=== PATIENT | female | born 1970 | race Caucasian/White ===

== ENCOUNTER 2019-08-05 10:46 | Outpatient (CLI) | payer BC ==
--- NOTE | 2019-08-05 16:25 | MRI ---
LEFT KNEE MRI WITHOUT IV CONTRAST: History: Left knee pain for several weeks. FINDINGS: Multiplanar, multisequence MR examination of the left knee is performed. Joint effusion with some dis tention of the suprapatellar recess. Focal irregular cartilage loss of the medial patellar facet cart ilage with some subchondral cystic and subchondral marrow signal changes. There are also prominent ca rtilage loss changes of the medial compartment, particularly the medial femoral condyle with some adj acent marrow signal, possibly reaction or possibly subtle insufficiency type fracture. Irregular root tear of the posterior root of the medial meniscus with intrasubstance degenerative signal throughout . The lateral meniscus appears unremarkable. Anterior and posterior cruciate ligaments, collateral li gament complexes, and quadriceps and patellar tendons appear intact. IMPRESSION: Posterior root tear of medial meniscus. Cartilage loss of the medial patellar facet and medial compar tment with some subchondral cystic changes and possible associated subtle insufficiency type fracture of the medial femoral condyle. Evidence for joint effusion. POS: JIMMIE
== END 2019-08-05 10:47 | disposition home or self-care (01) ==
LOC: SCSMRI 10:46
PROVIDERS: ATTEND Orthopaedic Surgery
DX: M25.562 Pain in left knee (principal); M25.462 Effusion, left knee; S83.242A Other tear of medial meniscus, current injury, left knee, initial encounter

== ENCOUNTER 2019-11-28 05:48 | Outpatient (CLI) | payer BC ==
[2019-11-28 13:44] LABS: #Basophils 0.1 thou/uL (0.0-0.2); #Eosinphils 0.1 thou/uL (0.0-0.7); #Lymphocytes 3.4 thou/uL (1.20-3.40); #Monocytes 0.8 thou/uL (0.11-0.59); #Neutrophils 5.9 thou/uL (1.40-6.50); %Basophils 0.6 % (0.0-1.0); %Eosinophils 0.8 % (0.0-10.0); %Lymphocytes 33.4 % (21.0-51.0); %Monocytes 8.2 % (0.0-10.0); Mean Corpuscular HGB CONC 31.8 g/dL (32.0-36.0); Mean Corpuscular Hemoglobin 29.9 pg (27.0-31.0); Mean Platelet Volume 7.7 fL (7.4-10.4); Platelet Count 372 thou/uL (130-400); RBC Distribution Width 11.2 % (11.5-14.5); Red Blood Cell (RBC) Count 4.68 mill/uL (4.20-5.40); White Blood Cell (WBC) Count 10.3 thou/uL (4.8-10.8)
[2019-11-28 13:52] LABS: Prothrombin Time 13.4 SEC (12.0-14.7)
[2019-11-28 13:53] LABS: Bilirubin Negative (Negative); Glucose, Urine (Dipstick) Negative (Negative); Leukocyte Large (Negative); Nitrite Negative (Negative); Protein, Urine (Dipstick) 30 mg/dL (Neg-Trace); Urobilinogen 0.2 mg/dL (Less than 2)
[2019-11-28 13:56] LABS: Clarity Cloudy (Clear)
[2019-11-28 14:02] LABS: Bacteria/HPF 4+ HPF (None Seen); Mucous/LPF 1+ LPF (<2+); RBC/HPF 21-50 HPF (0-3); Renal Epithelial 0-3 HPF (None Seen); Squamous Epithelial Greater than 50 HPF (0-3); Transitional Epithelial 0-3 HPF (None Seen); WBC/HPF Greater than 50 HPF (0-3)
[2019-11-28 14:05] LABS: Anion Gap 12 mmol/L (10-20); BUN (Urea Nitrogen) 8 mg/dL (7.0-18.7); Calc. Creatinine Clearance 0 mL/min (70-130); Calcium 9.2 mg/dL (7.8-10.44); Carbon Dioxide 22 mmol/L (22-29); Chloride 107 mmol/L (98-107); Estimated GFR-MDRD 79; Glucose 107 mg/dL (70-105); Potassium 4.1 mmol/L (3.5-5.1); Sodium 137 mmol/L (136-145)
[2019-11-28 14:05] LABS: Blood, Urine 1+ (Negative)
== END 2019-11-28 05:49 | disposition home or self-care (01) ==
LOC: LABBT 05:48
PROVIDERS: ATTEND Orthopaedic Surgery
DX: Z01.818 Encounter for other preprocedural examination (principal); M17.12 Unilateral primary osteoarthritis, left knee
CPT/HCPCS: 80048; 81001; 85025; 85610; 87081; 93005; 93010

== ENCOUNTER 2019-11-28 13:00 | Inpatient (IN) | payer BC ==
[2019-11-28 12:26] VITALS: BMI 32.8
[2019-12-09] MEDS ORDERED: Vancomycin 1.5 GRAM/300 ML BAG 1.5 GM/300 ML BAG ONE (05:54)
[2019-12-09] MEDS ORDERED: Clindamycin/D5W 600 mg/50 ml Premix Bag ONE (05:54)
[2019-12-09] MEDS ORDERED: Tranexamic Acid 1,000 MG/10 ML VIAL ONE (05:54)
[2019-12-09] MEDS ORDERED: Sodium Chloride 0.9% 0 ML ONE (05:54)
[2019-12-09] MEDS ORDERED: Lidocaine 2% Jelly 5 ML TUBE ONE (05:59)
[2019-12-09] MEDS ORDERED: Fentanyl 100 MCG/2 ML VIAL ONE ×4 (05:59→10:29)
[2019-12-09] MEDS ORDERED: Sodium Chloride 0.9% 100 ML ONE (06:04)
[2019-12-09 06:19] LABS: Bilirubin Negative (Negative); Blood, Urine Negative (Negative); Clarity Clear (Clear); Glucose, Urine (Dipstick) Normal (Negative); Leukocyte 250 Leu/uL (Negative); Nitrite Negative (Negative); Protein, Urine (Dipstick) Negative (Neg-Trace); RBC/HPF 0-3 HPF (0-3); Urobilinogen Normal mg/dL (Less than 2)
[2019-12-09] MEDS ORDERED: Ondansetron PF 4 MG/2 ML Vial ONE ×2 (06:25→09:51)
[2019-12-09] MEDS ORDERED: Midazolam HCl 2 mg/2 ml Vial ONE (06:26)
[2019-12-09] MEDS ORDERED: Lidocaine 1% (PF) 30 ML VIAL ONE (06:26)
[2019-12-09] MEDS ORDERED: Bupivacaine PF 0.5% 30 ML VIAL ONE (06:31)
[2019-12-09 06:38] LABS: Bacteria/HPF Rare-Few HPF (None Seen)
[2019-12-09 06:39] LABS: Sperm/HPF 1+ HPF (None Seen)
[2019-12-09] MEDS ORDERED: Ropivacaine HCl/PF 250 ML in Premix Bag 1 BAG NERVE BLCK SCH (07:26)
[2019-12-09] MEDS ORDERED: Ondansetron PF 4 MG/2 ML Vial IVP PRN ×2 (07:26→11:59)
[2019-12-09] MEDS ORDERED: traMADol HCl 50 MG TAB PO PRN ×2 (07:26)
[2019-12-09] MEDS ORDERED: Zolpidem Tartrate 5 MG TAB PO PRN ×2 (07:26→11:59)
[2019-12-09] MEDS ORDERED: Acetaminophen 325 MG TAB PO PRN ×2 (07:26→11:59)
[2019-12-09] MEDS ORDERED: Promethazine HCl 25 MG/ML VIAL IM PRN ×3 (07:26→11:59)
[2019-12-09] MEDS ORDERED: HYDROcodone/Acetaminophen 10/325 mg Tablet PO PRN ×2 (07:26)
[2019-12-09] MEDS ORDERED: Fentanyl 100 MCG/2 ML VIAL SLOW IVP PRN (07:27)
[2019-12-09] MEDS ORDERED: Ketorolac Tromethamine 30 MG/ML VIAL IVP PRN (08:29)
[2019-12-09] MEDS ORDERED: Ondansetron HCl/PF 4 MG/2 ML Vial IVP PRN (08:29)
[2019-12-09] MEDS ORDERED: Promethazine HCl 25 MG/ML VIAL SLOW IVP PRN (08:29)
[2019-12-09] MEDS ORDERED: HYDROmorphone 2 MG/ML VIAL SLOW IVP PRN (08:29)
[2019-12-09] MEDS ORDERED: Meperidine HCl/PF 25 MG/ML VIAL SLOW IVP PRN ×2 (08:29)
[2019-12-09 09:00] LABS: Bacteria/HPF None Seen HPF (None Seen); Bilirubin Negative (Negative); Blood, Urine Negative (Negative); Clarity Clear (Clear); Glucose, Urine (Dipstick) Normal (Negative); Leukocyte Negative Leu/uL (Negative); Nitrite Negative (Negative); Protein, Urine (Dipstick) 20 mg/dL (Neg-Trace); RBC/HPF None Seen HPF (0-3); Squamous Epithelial None Seen HPF (0-3); Urobilinogen Normal mg/dL (Less than 2); WBC/HPF 0-3 HPF (0-3)
--- NOTE | 2019-12-09 09:30 | OP ---
DATE OF PROCEDURE: 12/09/2019 PREOPERATIVE DIAGNOSIS: Left knee osteoarthrosis. POSTOPERATIVE DIAGNOSIS: Left knee osteoarthrosis. PROCEDURE PERFORMED: Left total knee replacement using ABODO pinless navigation. CARD CUTTER: Reji hKan PA-C ESTIMATED BLOOD LOSS: Minimal. COMPLICATIONS: None. ANESTHESIA: The patient did have a general anesthetic as well as preoperative block. IMPLANTS: Triathlon total knee system. The femur was a size 3 cruciate retaining left femur. We used a size 2 primary tibial base plate. We used a size 2 x 9 mm CS X3 tibial bearing and a symmetric 27 x 8 X3 patella. DISPOSITION: The patient did go to recovery room in stable condition. INDICATIONS FOR PROCEDURE: This is a 49-year-old female, who failed nonoperative treatment for medial gonarthrosis and at this time wished to have the knee replaced. PROCEDURE IN DETAIL: After all appropriate consent forms were explained and signed, the patient was taken back to the operating room and at this time was given general anesthetic. Once the level of anesthesia was appropriate, a well-padded tourniquet was placed on the left leg, and the leg was then prepped and draped in standard surgical fashion. The limb was exsanguinated and tourniquet taken up to 300 mmHg. Midline incision was made with a 10 blade down through the skin and subcutaneous tissue. Bovie electrocautery was used to coagulate any brisk venous bleeding. A new blade was used to make a medial parapatellar arthrotomy. Small subperiosteal release was performed medially and excess fat pad was removed. The knee was flexed up to gain access to the femur. The femur was navigated and distal femoral resection was made. Epicondylar access was used to align our sizing jig and this was pinned in place. We sized our femur to be a size 3. 4:1 cutting block was applied and pinned. Anterior and posterior chamfer cuts were then made. We navigated out our proximal tibia and made our proximal tibial resection. Spreaders were used to remove any posterior osteophytes off the back of the femur as well as remaining meniscal tissue. A long alignment doc was then used to achieve correct rotation of our tibial baseplate and a size 2 primary tibial base plate was chosen. This was pinned in place. We trialed the polyethylene and a 2 x 9 mm CS X3 tibial bearing polyethylene gave us full extension and good stability throughout range of motion. Two towel clips and a saw were used to cut our patella. Three lug nuts were drilled and a symmetric 27 x 8 X3 patella was trialed which sat nicely in the trochlear groove. We then drilled our femur and punched our tibia. All components were removed. The knee was thoroughly irrigated and dried. Cement was mixed into the cement gun on the back table. Components were then placed. The knee was held out in full extension until the cement had dried. All excess bone cement was removed. Multiple #2 Vicryl stitches as well as a Quill were used to close our extensor mechanism. 0 Quill followed by a running Monoderm was then used to close the skin. Surgicel glue was then used on the skin. Once this had dried, soft tissue dressing was applied to the limb, tourniquet was let down, and the toes pinked up nicely. The patient was then awakened and taken to the recovery room in stable condition. All counts were correct at the end of the case. The patient did receive preoperative IV antibiotics. Job ID: [id number]
[2019-12-09] MEDS ORDERED: Ropivacaine 0.5% HCl/PF (150 MG/30 ML VIAL) ONE (09:51)
[2019-12-09] MEDS ORDERED: Ropivacaine 0.2% HCl/PF (40 MG/20 ML VIAL) ONE (09:51)
[2019-12-09] MEDS ORDERED: Dexamethasone 20 MG/5 ML VIAL ONE (09:51)
[2019-12-09] MEDS ORDERED: PROPOFOL 200 MG/20 ML VIAL ONE (09:51)
[2019-12-09] MEDS ORDERED: Promethazine HCl 25 MG/ML VIAL ONE (10:00)
[2019-12-09] MEDS ORDERED: Ketorolac Tromethamine 30 MG/ML VIAL ONE (10:35)
[2019-12-09] MEDS ORDERED: diphenhydrAMINE 25 MG CAP PO PRN (11:59)
[2019-12-09] MEDS ORDERED: FLU VACC QS2019-20(6MOS UP)/PF 60 MCG/0.5 ML SYRINGE IM ONE (13:00)
[2019-12-09] MEDS: HYDROcodone/Acetaminophen 10/325 mg Tablet PO PRN ×2 (13:24→21:31)
[2019-12-09 13:49] LABS: Bacteria/HPF None Seen HPF (None Seen); Bilirubin Negative (Negative); Blood, Urine Trace (Negative); Clarity Clear (Clear); Glucose, Urine (Dipstick) Normal (Negative); Leukocyte Negative Leu/uL (Negative); Nitrite Negative (Negative); Protein, Urine (Dipstick) Negative (Neg-Trace); RBC/HPF 0-3 HPF (0-3); Squamous Epithelial None Seen HPF (0-3); Urobilinogen Normal mg/dL (Less than 2)
[2019-12-09] MEDS ORDERED: CEFAZOLIN 2 GM in Premix Bag 1 BAG IVPB SCH (14:00)
[2019-12-09] MEDS: Ketorolac Tromethamine 30 MG/ML VIAL IVP SCH ×3 (14:29→23:53)
[2019-12-09] MEDS: Clindamycin/D5W 600 MG in Premix Bag 1 BAG IVPB SCH ×2 (14:34→21:30)
[2019-12-09] MEDS ORDERED: Vancomycin HCl 1 GM in Premix Bag 1 BAG IVPB SCH (18:00)
--- NOTE | 2019-12-09 18:08 | PDOC.HOSPP ---
- Subjective Encounter Date: 12/09/19 Encounter Time: 18:00 Subjective: Consulted for gen medical mgmt s/p L TKA. Hx of HTN, GERD, Osteoarthritis and seasonal allergy. No specific pain currently. No SOB or CP. - Objective Vital Signs & Weight: Vital Signs (12 hours) Temp Pulse Pulse Resp BP BP Pulse Ox 12/09/19 13:24 80 108/73 12/09/19 11:10 98.5 F 76 24 H 115/76 99 Weight Weight 185 lb I&O: 12/08/19 12/09/19 12/10/19 06:59 06:59 06:59 Output Total 1000 Balance -1000 Additional Labs: Laboratory Tests 11/28/19 11/28/19 12:34 12:38 WBC 10.3 Hgb 14.0 Hct 44.1 Plt Count 372 Sodium 137 Potassium 4.1 Chloride 107 Carbon Dioxide 22 Anion Gap 12 BUN 8 Creatinine 0.78 Glucose 107 H Calcium 9.2 EKG Reviewed by me: Yes (SR in 60's, NL axis, no acute changes) Hospitalist ROS - Medication Medications: Active Medications Generic Name Dose Route Start Last Admin Trade Name Freq PRN Reason Stop Dose Admin Hydrocodone Bitart/Acetaminophen 1 tab 12/09/19 11:59 12/09/19 13:24 [place] 10/325 PO 1 tab Q4H PRN Administration Moderate Pain (4-6) Vancomycin HCl 1 gm/ Device 200 mls @ 200 mls/hr 12/09/19 18:00 12/09/19 17: 38 IVPB 12/09/19 18:59 200 mls 1800 WANDA Administration Clindamycin Phosphate/Dextrose 50 mls @ 100 mls/hr 12/09/19 14:00 12/09/19 14 :34 600 mg/ Device IVPB 12/09/19 22:29 50 mls 1400,2200 WANDA Administration Ketorolac Tromethamine 30 mg 12/09/19 12:00 12/09/19 17:38 Toradol IVP 12/11/19 06:01 30 mg Q6HR WANDA Administration Sodium Chloride 10 ml 12/09/19 09:00 12/09/19 14:29 Flush - Normal Saline IVF Not Given Q12HR WANDA - Exam General Appearance: NAD, awake alert Eye: PERRL, anicteric sclera ENT: normocephalic atraumatic, no oropharyngeal lesions Neck: supple, symmetric, no JVD, no thyromegaly Heart: RRR, no murmur, no gallops, no rubs, normal peripheral pulses Respiratory: CTAB, no wheezes, no rales, no ronchi, normal chest expansion Gastrointestinal: soft, non-tender, non-distended, normal bowel sounds Extremities: no cyanosis Extremities - other findings: LLE with surgical wrap in place Skin: normal turgor Neurological: cranial nerve grossly intact Psychiatric: normal affect, A&O x 3 Hosp A/P (1) HTN (hypertension) Code(s): I10 - ESSENTIAL (PRIMARY) HYPERTENSION Status: Chronic Qualifiers: Hypertension type: essential hypertension Qualified Code(s): I10 - Essential (primary) hypertension Plan: Resume Metoprolol and hold Lisinopril until 12/10/19, serial BP monitoring (2) GERD (gastroesophageal reflux disease) Code(s): K21.9 - GASTRO-ESOPHAGEAL REFLUX DISEASE WITHOUT ESOPHAGITIS Status: Chronic Plan: Continue PPI (3) Osteoarthritis Code(s): M19.90 - UNSPECIFIED OSTEOARTHRITIS, UNSPECIFIED SITE Status: Chronic Plan: Pain control, PT/OT (4) Status post total knee replacement, left Code(s): Z96.652 - PRESENCE OF LEFT ARTIFICIAL KNEE JOINT Status: Acute Plan: ASA 81mg BID, DVT ppx, OOB with PT - Plan PT/OT, social science manager, incentive spirometry, DVT proph w/SCDs Stable overall Continue ASA 81mg BID Pain control Continue Joint U protocol Incentive spirometer AM lab: CBC
[2019-12-09] MEDS: Senokot S 8.6-50 MG TAB PO SCH (21:18)
[2019-12-09] MEDS: Ferrous Gluconate 324 MG TAB PO SCH (21:18)
[2019-12-09] MEDS: Aspirin 81 mg Enteric Coated Tablet PO SCH (21:30)
[2019-12-10 05:07] LABS: Hemoglobin 12.1 g/dL (12.0-16.0); Mean Corpuscular HGB CONC 33.9 g/dL (32.0-36.0); Mean Corpuscular Hemoglobin 32.1 pg (27.0-31.0); Mean Corpuscular Volume 94.7 fL (78.0-98.0); Mean Platelet Volume 7.7 fL (7.4-10.4); Platelet Count 287 thou/uL (130-400); RBC Distribution Width 11.1 % (11.5-14.5); Red Blood Cell (RBC) Count 3.76 mill/uL (4.20-5.40); White Blood Cell (WBC) Count 14.2 thou/uL (4.8-10.8)
[2019-12-10] MEDS: HYDROcodone/Acetaminophen 10/325 mg Tablet PO PRN ×5 (05:23→22:38)
[2019-12-10] MEDS: Ketorolac Tromethamine 30 MG/ML VIAL IVP SCH ×3 (06:39→17:10)
[2019-12-10] MEDS: Ferrous Gluconate 324 MG TAB PO SCH ×3 (09:02→21:10)
[2019-12-10] MEDS: Aspirin 81 mg Enteric Coated Tablet PO SCH ×2 (09:02→21:10)
[2019-12-10] MEDS: Senokot S 8.6-50 MG TAB PO SCH ×2 (09:04→21:09)
[2019-12-10] MEDS: Lisinopril 20 MG TAB PO SCH ×2 (09:05→21:09)
[2019-12-10] MEDS: Multivitamin W/ Minerals 1 TAB PO SCH (09:05)
--- NOTE | 2019-12-10 14:59 | PRG ---
DATE OF SERVICE: 12/10/2019 SUBJECTIVE: Marlyn is a 49-year-old female postop day 1 from left total knee arthroplasty for avascular necrosis of the left knee. Subjectively, she is doing relatively well. She has no complaints of pain. She is comfortable at this point. She ambulated 280 feet today. OBJECTIVE: VITAL SIGNS: Temperature , pulse 83, respiratory rate 16, and blood pressure 134/77. GENERAL: She is alert and oriented to person, place, time, and situation. Responds appropriately with examiner, in no pain and grossly nonfocal. EXTREMITIES: She is neurovascularly intact in the left lower extremity, and she has no strike through at the incision. No erythema. LABORATORY DATA: Hemoglobin and hematocrit 12.1 and 35.6. IMPRESSION: A 49-year-old female postoperative day 1, left total knee arthroplasty, doing well. PLAN: Continue current care. Probable discharge to home tomorrow. Job ID: [id number]
--- NOTE | 2019-12-10 18:01 | PDOC.HOSPP ---
- Subjective Encounter Date: 12/10/19 Encounter Time: 17:50 Subjective: f/u s/p L TKA POD #1. Feels ok overall and pain controlled with current regimen. Ambulated today with RW and overall feels well. No CP, SOB. - Objective Vital Signs & Weight: Vital Signs (12 hours) Temp Pulse Resp BP Pulse Ox 12/10/19 16:25 98.6 F 85 16 114/67 98 12/10/19 08:55 96 12/10/19 07:25 98.7 F 83 16 134/77 96 Weight Admit Weight 185 lb Weight 185 lb I&O: 12/09/19 12/10/19 12/11/19 06:59 06:59 06:59 Intake Total 1050 Output Total 1000 725 Balance -1000 325 Result Diagrams: 12/10/19 04:55 Additional Labs: Laboratory Tests 11/28/19 11/28/19 12:34 12:38 WBC 10.3 Hgb 14.0 Hct 44.1 Plt Count 372 Sodium 137 Potassium 4.1 Chloride 107 Carbon Dioxide 22 Anion Gap 12 BUN 8 Creatinine 0.78 Glucose 107 H Calcium 9.2 Hospitalist ROS - Medication Medications: Active Medications Generic Name Dose Route Start Last Admin Trade Name Freq PRN Reason Stop Dose Admin Hydrocodone Bitart/Acetaminophen 1 tab 12/09/19 11:59 12/10/19 05:23 [place] 10/325 PO 1 tab Q4H PRN Administration Moderate Pain (4-6) Hydrocodone Bitart/Acetaminophen 2 tab 12/09/19 11:59 12/10/19 13:24 [place] 10/325 PO 2 tab Q4H PRN Administration Severe Pain (7-10) Aspirin 81 mg 12/09/19 21:00 12/10/19 09:02 Ecotrin PO 81 mg BID WANDA Administration Fentanyl 50 mcg 12/09/19 07:27 12/10/19 06:45 Sublimaze SLOW IVP 50 mcg Q1H PRN Administration breakthrough pain Ferrous Gluconate 324 mg 12/09/19 21:00 12/10/19 09:04 Fergon PO Not Given BID WANDA Ropivacaine 250 ml/ Device 250 mls @ 10 mls/hr 12/09/19 07:26 12/10/19 09:07 NERVE BLCK 12/12/19 07:25 250 mls INF WANDA Administration Iron/Minerals/Multivitamins 1 tab 12/10/19 09:00 12/10/19 09:05 Theragran M PO 1 tab DAILY WANDA Administration Ketorolac Tromethamine 30 mg 12/09/19 12:00 12/10/19 17:10 Toradol IVP 12/11/19 06:01 30 mg Q6HR WANDA Administration Lisinopril 20 mg 12/09/19 21:00 12/10/19 09:05 Zestril PO Not Given BID [facility] Metoprolol Succinate 25 mg 12/10/19 09:00 12/10/19 09:03 Toprol Xl PO 25 mg QAM WANDA Administration Ondansetron HCl 4 mg 12/09/19 11:59 12/10/19 05:24 Zofran IVP 4 mg Q6H PRN Administration Nausea/Vomiting Promethazine HCl 12.5 mg 12/09/19 11:59 12/10/19 09:02 Phenergan IM 12.5 mg Q4H PRN Administration Nausea/Vomiting Senna/Docusate Sodium 2 tab 12/09/19 21:00 12/10/19 09:04 Senokot S PO 2 tab BID WANDA Administration Sodium Chloride 10 ml 12/09/19 09:00 12/10/19 11:54 Flush - Normal Saline IVF 10 ml Q12HR WANDA Administration - Exam General Appearance: NAD, awake alert Eye: PERRL, anicteric sclera ENT: normocephalic atraumatic, no oropharyngeal lesions Neck: supple, symmetric, no JVD, no thyromegaly Heart: RRR, no murmur, no gallops, no rubs, normal peripheral pulses Respiratory: CTAB, no wheezes, no rales, no ronchi, normal chest expansion Gastrointestinal: soft, non-tender, non-distended, normal bowel sounds Extremities: no cyanosis Extremities - other findings: L knee with surgical dressing in place Skin: normal turgor Neurological: cranial nerve grossly intact, no new deficit Musculoskeletal: normal tone, normal strength Psychiatric: normal affect, A&O x 3 Hosp A/P (1) HTN (hypertension) Code(s): I10 - ESSENTIAL (PRIMARY) HYPERTENSION Status: Chronic Qualifiers: Hypertension type: essential hypertension Qualified Code(s): I10 - Essential (primary) hypertension Plan: stable, continue Lisinopril/Metoprolol (2) GERD (gastroesophageal reflux disease) Code(s): K21.9 - GASTRO-ESOPHAGEAL REFLUX DISEASE WITHOUT ESOPHAGITIS Status: Chronic (3) Osteoarthritis Code(s): M19.90 - UNSPECIFIED OSTEOARTHRITIS, UNSPECIFIED SITE Status: Chronic (4) Status post total knee replacement, left Code(s): Z96.652 - PRESENCE OF LEFT ARTIFICIAL KNEE JOINT Status: Acute Plan: POD #1, pain control, ASA 81mg BID, PT/OT for mobilization - Plan PT/OT, socially responsible investment adviser, incentive spirometry, out of bed/ambulate, DVT proph w/ SCDs Stable overall Continue ASA 81mg BID Pain control Continue Joint U protocol Incentive spirometer Likely home in am
[2019-12-11] MEDS: Ketorolac Tromethamine 30 MG/ML VIAL IVP SCH ×2 (00:25→05:42)
[2019-12-11] MEDS: HYDROcodone/Acetaminophen 10/325 mg Tablet PO PRN ×3 (03:23→12:15)
[2019-12-11 05:33] LABS: Hemoglobin 11.3 g/dL (12.0-16.0); Mean Corpuscular HGB CONC 32.3 g/dL (32.0-36.0); Mean Corpuscular Hemoglobin 30.6 pg (27.0-31.0); Mean Corpuscular Volume 94.8 fL (78.0-98.0); Platelet Count 278 thou/uL (130-400); RBC Distribution Width 11.2 % (11.5-14.5); Red Blood Cell (RBC) Count 3.71 mill/uL (4.20-5.40); White Blood Cell (WBC) Count 10.4 thou/uL (4.8-10.8)
[2019-12-11] MEDS: Aspirin 81 mg Enteric Coated Tablet PO SCH (07:58)
[2019-12-11] MEDS: Senokot S 8.6-50 MG TAB PO SCH (07:58)
[2019-12-11] MEDS: Lisinopril 20 MG TAB PO SCH (07:58)
[2019-12-11] MEDS: Ferrous Gluconate 324 MG TAB PO SCH (07:58)
[2019-12-11] MEDS: Multivitamin W/ Minerals 1 TAB PO SCH (07:59)
[2019-12-11 11:49] VITALS: BP 120/83; TEMP 98.7
== END 2019-12-11 14:14 | disposition home or self-care (01) | DRG 470 ==
LOC: SJJU 12-09 05:32
PROVIDERS: ADMIT Orthopaedic Surgery; ATTEND Orthopaedic Surgery
PROC: 0SRD0J9 Replacement of Left Knee Joint with Synthetic Substitute, Cemented, Open Approach (ICD-10-PCS; principal; 2019-12-09)
DX: M17.12 Unilateral primary osteoarthritis, left knee (principal); I10 Essential (primary) hypertension; J30.2 Other seasonal allergic rhinitis; K21.9 Gastro-esophageal reflux disease without esophagitis; Z88.0 Allergy status to penicillin; Z87.891 Personal history of nicotine dependence; Z79.899 Other long term (current) drug therapy
CPT/HCPCS: 36415; 81001; 85027; 87086; 90471; 90686; C1713; C1776; G0008; J1100; J1885; J2001; J2250; J2405; J2550; J2704; J2795; J3010; J3370; J3490; S0020

== ENCOUNTER 2021-06-02 09:32 | Outpatient (CLI) | payer BC ==
[2021-06-02 11:15] LABS: Hemoglobin 14.4 g/dL (12.0-15.5); Mean Corpuscular HGB CONC 33.8 g/dL (32.0-36.0); Mean Corpuscular Hemoglobin 32.1 pg (27.0-33.0); Mean Corpuscular Volume 94.9 fl (81.6-98.3); Mean Platelet Volume 9.6 fl (7.4-10.4); Platelet Count 376 10x3/uL (150-450); Red Blood Cell (RBC) Count 4.49 10x6/uL (3.90-5.03); White Blood Cell (WBC) Count 8.4 10x3/uL (3.5-10.5)
[2021-06-02 12:09] LABS: Anion Gap 13 mmol/L (10-20); BUN (Urea Nitrogen) 9 mg/dL (7.0-18.7); Calc. Creatinine Clearance 0 mL/min (70-130); Calcium 9.4 mg/dL (7.8-10.44); Carbon Dioxide 23 mmol/L (22-29); Chloride 109 mmol/L (98-107); Glucose 132 mg/dL (70-105); Potassium 4.2 mmol/L (3.5-5.1); Sodium 141 mmol/L (136-145)
[2021-06-02 18:41] LABS: SARS-CoV-2 PCR by NAA Not Detected (NotDetected)
== END 2021-06-02 09:33 | disposition home or self-care (01) ==
LOC: LABBT 09:32
PROVIDERS: ATTEND Neurological Surgery
DX: Z01.818 Encounter for other preprocedural examination (principal); M54.12 Radiculopathy, cervical region; Z20.822 Contact with and (suspected) exposure to COVID-19
CPT/HCPCS: 80048; 85027; 93005; 93010; U0003; U0005

== ENCOUNTER 2021-06-07 06:19 | Day surgery (SDC) | payer BC ==
[2021-06-03 10:55] VITALS: BMI 37.9
[2021-06-07] MEDS ORDERED: Fentanyl 250 MCG/5 ML VIAL ONE (06:39)
[2021-06-07] MEDS ORDERED: Clindamycin/D5W 900 mg/50 ml Premix Bag ONE (07:15)
[2021-06-07] MEDS ORDERED: Levofloxacin 500 mg/D5W 100 ml Premix Bag ONE (07:15)
[2021-06-07] MEDS ORDERED: Midazolam HCl 2 mg/2 ml Vial ONE (07:17)
[2021-06-07] MEDS ORDERED: Lidocaine 1% PF 5 ML VIAL ONE (08:20)
[2021-06-07] MEDS ORDERED: Rocuronium Bromide 10 MG/ML (10ML VIAL) ONE (08:20)
[2021-06-07] MEDS ORDERED: Ketorolac Tromethamine 30 MG/ML VIAL ONE (08:20)
[2021-06-07] MEDS ORDERED: Glycopyrrolate 0.2 MG/ML 5 ML SYRINGE ONE (08:20)
[2021-06-07] MEDS ORDERED: PROPOFOL 200 MG/20 ML VIAL ONE (08:20)
[2021-06-07] MEDS ORDERED: Dexamethasone 20 MG/5 ML VIAL ONE (08:20)
[2021-06-07] MEDS ORDERED: PHENYLEPHRINE-NS 100 MCG/ML 10 ML SYRINGE ONE (08:20)
[2021-06-07] MEDS ORDERED: Ondansetron PF 4 MG/2 ML Vial ONE ×2 (08:20→09:44)
[2021-06-07] MEDS ORDERED: Promethazine HCl 25 MG/ML VIAL ONE (09:37)
== END 2021-06-07 11:02 | disposition home or self-care (01) ==
LOC: SDC 06:19
PROVIDERS: ATTEND Neurological Surgery
PROC: 0RG20A0 Fusion of 2 or more Cervical Vertebral Joints with Interbody Fusion Device, Anterior Approach, Anterior Column, Open Approach (ICD-10-PCS; principal; 2021-06-07)
DX: M47.22 Other spondylosis with radiculopathy, cervical region (principal); I10 Essential (primary) hypertension; K21.9 Gastro-esophageal reflux disease without esophagitis; Z79.899 Other long term (current) drug therapy; Z88.0 Allergy status to penicillin
CPT/HCPCS: 76000; C1713; C1776; J1100; J1885; J1956; J2250; J2405; J2550; J2704; J3010; J3490

== ENCOUNTER 2021-11-09 07:14 | Outpatient (CLI) | payer BC | END 2021-11-09 07:15 | disposition home or self-care (01) | LOC: NM 07:14 | PROVIDERS: ATTEND Internal Medicine Gastroenterology | DX: R68.81 Early satiety (principal) | CPT/HCPCS: 78264; A9541 ==

== ENCOUNTER 2022-12-08 11:27 | Outpatient (CLI) | payer BC | END 2022-12-08 11:28 | disposition home or self-care (01) | LOC: SCSMRI 11:27 | PROVIDERS: ATTEND Nurse Practitioner Family | DX: M51.17 Intervertebral disc disorders with radiculopathy, lumbosacral region (principal) | CPT/HCPCS: 72148 ==

== ENCOUNTER 2023-04-13 09:27 | Outpatient (CLI) | payer BC ==
[2023-04-13 10:44] LABS: #Monocytes 0.4 10x3/uL (0.0-1.1); #Neutrophils 3.7 10x3/uL (1.5-8.4); %Basophils 0.6 % (0.0-2.0); %Eosinophils 0.6 % (0.0-6.0); %Lymphocytes 31.3 % (18.0-47.0); %Monocytes 6.2 % (0.0-10.0); %Neutrophils 60.7 % (40.0-75.0); Hemoglobin 13.8 g/dL (12.0-15.5); Mean Corpuscular HGB CONC 33.1 g/dL (32.0-36.0); Mean Corpuscular Hemoglobin 32.9 pg (27.0-33.0); Mean Corpuscular Volume 99.5 fl (81.6-98.3); Mean Platelet Volume 9.7 fl (7.4-10.4); Platelet Count 304 10x3/uL (150-450); Red Blood Cell (RBC) Count 4.19 10x6/uL (3.90-5.03); White Blood Cell (WBC) Count 6.2 10x3/uL (3.5-10.5)
[2023-04-13 10:54] LABS: Prothrombin Time 10.5 sec (9.5-12.1)
[2023-04-13 10:59] LABS: Anion Gap 13 mmol/L (10-20); BUN (Urea Nitrogen) 7 mg/dL (7.0-18.7); Calc. Creatinine Clearance 0 mL/min (70-130); Calcium 8.4 mg/dL (7.8-10.44); Carbon Dioxide 21 mmol/L (22-29); Chloride 111 mmol/L (98-107); Estimated GFR 81; Glucose 95 mg/dL (70-105); Sodium 141 mmol/L (136-145)
== END 2023-04-13 09:28 | disposition home or self-care (01) ==
LOC: LABBT 09:27
PROVIDERS: ATTEND Orthopaedic Surgery
DX: Z01.818 Encounter for other preprocedural examination (principal); M16.11 Unilateral primary osteoarthritis, right hip
CPT/HCPCS: 80048; 85025; 85610; 87081; 93005; 93010